=== PATIENT | male | born 1945 | race Caucasian/White ===

== ENCOUNTER → 2018-06-26 | Outpatient (CLI) | payer MEDICARE ==
--- NOTE | ~2018-06-26 | EKG ---
[place], [place] ELECTROCARDIOGRAM REPORT NAME: ADRIÁN BLANCHARD UNIT #: [id number] ROOM: DOCTOR: KAYLA DRAFT REPORT BIRTHDATE: [address] 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
== END | disposition home or self-care (01) ==
LOC: CARD 10:04
DX: I10 Essential (primary) hypertension (principal)

== ENCOUNTER 2020-03-28 08:38 | Emergency (ER) | payer OTHER ==
[~2020-03-28] VITALS: Ht 180.3 cm; Wt 102.1 kg
[2020-03-28] MEDS ORDERED: PREDNISONE10 MG PO ×2 (11:11)
== END 2020-03-28 11:57 | disposition home or self-care (01) ==
LOC: ED 08:38
DX: S39.012A Strain of muscle, fascia and tendon of lower back, initial encounter (principal); L23.7 Allergic contact dermatitis due to plants, except food; X58.XXXA Exposure to other specified factors, initial encounter; Y93.89 Activity, other specified; Y92.89 Other specified places as the place of occurrence of the external cause; Y99.8 Other external cause status

== ENCOUNTER → 2020-05-12 | Outpatient (CLI) | payer OTHER ==
[~2020-05-12] MED LIST: ELIQUIS5 M1 PO; ELIQUIS5 M2 PO; LIPITOR10 MG PO; LISINOPRIL20 MG PO; PREDNISONE10 MG PO
== END | disposition home or self-care (01) ==
LOC: US 14:35
PROVIDERS: ATTEND Family Medicine
DX: I82.412 Acute embolism and thrombosis of left femoral vein (principal); I82.432 Acute embolism and thrombosis of left popliteal vein; I82.452 Acute embolism and thrombosis of left peroneal vein; R60.0 Localized edema

== ENCOUNTER 2020-05-13 11:08 | Emergency (ER) | payer OTHER ==
[~2020-05-13] VITALS: Ht 180.3 cm; Wt 101.2 kg
[~2020-05-13 11:08] MED LIST changes: -ELIQUIS5 M1 PO; -ELIQUIS5 M2 PO; -LIPITOR10 MG PO; -LISINOPRIL20 MG PO
[2020-05-13] MEDS ORDERED: LIPITOR10 MG PO (11:21)
[2020-05-13] MEDS ORDERED: LISINOPRIL20 MG PO (11:22)
[2020-05-13] MEDS ORDERED: ELIQUIS5 M2 PO (11:35)
[2020-05-13] MEDS ORDERED: ELIQUIS5 M1 PO (11:42)
[2020-05-13 11:48] LABS: BASO # 0.1 10*3/uL (0.0-0.1); BASO % 1.1 % (0.0-1.0); EOS # 0.2 10*3/uL (0.0-0.4); EOS % 2.3 % (1.0-4.0); HEMATOCRIT 48.1 % (42.0-52.0); LYMPH # 1.2 10*3/uL (1.3-4.4); LYMPH % 16.5 % (27.0-41.0); MEAN CELL VOLUME 94.3 fl (80.0-94.0); MEAN CORPUSCULAR HGB 30.4 pg (27.0-31.0); MEAN CORPUSCULAR HGB CONC 32.2 g/dl (33.0-37.0); MEAN PLATELET VOLUME 9.5 fl (9.6-12.3); MONO # 0.8 10*3/uL (0.1-1.0); MONO % 11.1 % (3.0-9.0); NEUT # 4.9 10*3/uL (2.3-7.9); NEUT % 67.9 % (47.0-73.0); PLATELET COUNT AUTOMATED 354 10*3/uL (130-400); RED CELL DISTRI WIDTH 12.2 % (0-14.5); WHITE BLOOD COUNT 7.3 10*3/uL (4.8-10.8)
[2020-05-13 11:58] LABS: INTERNATIONAL NORM RATIO 1.2 (2.0-3.5)
[2020-05-13 12:00] LABS: BUN 18 mg/dl (7-24); CHLORIDE 105 mmol/L (98-107); CREATININE 1.16 mg/dL (0.70-1.30); POTASSIUM 3.7 mmol/L (3.5-5.1); SODIUM 140 mmol/L (136-145)
== END 2020-05-13 12:24 | disposition home or self-care (01) ==
LOC: ED 11:08
PROVIDERS: Emergency Medicine
DX: I82.412 Acute embolism and thrombosis of left femoral vein (principal); I10 Essential (primary) hypertension; E78.00 Pure hypercholesterolemia, unspecified; Z79.899 Other long term (current) drug therapy

== ENCOUNTER → 2022-01-02 | Outpatient (CLI) | payer OTHER ==
[~2022-01-02] MED LIST changes: +ELIQUIS5 M1 PO; +ELIQUIS5 M2 PO; +LIPITOR10 MG PO; +LISINOPRIL20 MG PO
== END | disposition home or self-care (01) ==
LOC: US 10:41
PROVIDERS: ATTEND Family Medicine
DX: I82.512 Chronic embolism and thrombosis of left femoral vein (principal); M79.89 Other specified soft tissue disorders

== ENCOUNTER → 2022-03-13 | Outpatient (CLI) | payer OTHER ==
[2022-03-13 09:44] LABS: BASO # 0.1 10*3/uL (0.0-0.1); BASO % 1.3 % (0.0-1.0); EOS # 0.1 10*3/uL (0.0-0.4); EOS % 1.8 % (1.0-4.0); HEMATOCRIT 49.6 % (42.0-52.0); LYMPH # 1.3 10*3/uL (1.3-4.4); MEAN CELL VOLUME 94.3 fl (80.0-94.0); MEAN CORPUSCULAR HGB 31.2 pg (27.0-31.0); MEAN CORPUSCULAR HGB CONC 33.1 g/dl (33.0-37.0); MEAN PLATELET VOLUME 9.6 fl (9.6-12.3); MONO # 0.6 10*3/uL (0.1-1.0); MONO % 11.2 % (3.0-9.0); NEUT # 3.4 10*3/uL (2.3-7.9); NEUT % 62.5 % (47.0-73.0); PLATELET COUNT AUTOMATED 285 10*3/uL (130-400); RED BLOOD COUNT 5.26 10*6/uL (4.50-5.90); RED CELL DISTRI WIDTH 11.9 % (0-14.5); WHITE BLOOD COUNT 5.4 10*3/uL (4.8-10.8)
[2022-03-13 09:55] LABS: ACT PARTIAL THROMBO TIME 28.8 SECONDS (20.0-32.1); INTERNATIONAL NORM RATIO 1.3 (2.0-3.5)
[2022-03-13 10:04] LABS: ALKALINE PHOSPHATASE 63 U/L (45-117); BUN 14 mg/dl (7-24); CHLORIDE 109 mmol/L (98-107); CREATININE 1.05 mg/dL (0.70-1.30); POTASSIUM 3.8 mmol/L (3.5-5.1); SGOT/AST 16 IU/L (3-35); SGPT/ALT 32 U/L (12-78); SODIUM 141 mmol/L (136-145); TOTAL PROTEIN 7.3 gm/dL (6.4-8.2)
== END | disposition home or self-care (01) ==
LOC: LAB 09:13
PROVIDERS: ATTEND Surgery Vascular Surgery
DX: I82.493 Acute embolism and thrombosis of other specified deep vein of lower extremity, bilateral (principal)

== ENCOUNTER → 2023-02-28 | Day surgery (SDC) | payer OTHER ==
[~2023-02-28] VITALS: Ht 180.3 cm; Wt 102.1 kg
[~2023-02-28] MED LIST changes: +ACETAMINOPHEN-1 EAC1 PO; +OMNICEF300 MG PO
[2023-02-28 09:30] VITALS: BP 130/83
[2023-02-28 10:45] VITALS: BP 97/55
[2023-02-28 11:00] VITALS: BP 112/61
[2023-02-28 11:15] VITALS: BP 134/90
[2023-02-28 11:30] VITALS: BP 129/87
== END | disposition home or self-care (01) ==
LOC: SDC 02-23 10:15
PROVIDERS: ATTEND Specialist
DX: R22.1 Localized swelling, mass and lump, neck (principal); I10 Essential (primary) hypertension; E78.00 Pure hypercholesterolemia, unspecified; Z90.89 Acquired absence of other organs

== ENCOUNTER → 2024-02-08 | Outpatient (CLI) | payer OTHER | END | disposition home or self-care (01) | LOC: RAD 09:41 | PROVIDERS: ATTEND Family Medicine | DX: M77.32 Calcaneal spur, left foot (principal); M79.672 Pain in left foot ==